=== PATIENT | female | born 1990 ===

== ENCOUNTER → 2021-02-13 10:13 | Outpatient (CLI) | payer OTHER, SELFPAY ==
[2021-02-13 23:00] LABS: COVID19 - ORCAS (NP or Nasal) Negative (Negative)
== END ==
PROVIDERS: PCP Physician Assistant; Visit Provider Family Medicine
DX: Z20.822 Contact with and (suspected) exposure to COVID-19 (principal); U07.1 COVID-19
CPT/HCPCS: U0003